=== PATIENT | male | born 1975 | race Caucasian/White ===

== ENCOUNTER 2018-08-06 14:53 | Emergency (ER) | payer OTHER ==
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
[2018-08-06 15:30] VITALS: BP 143/87
== END 2018-08-06 16:02 | disposition home or self-care (01) ==
LOC: UCCORT 14:53
DX: M76.62 Achilles tendinitis, left leg (principal); Z88.0 Allergy status to penicillin; Z88.1 Allergy status to other antibiotic agents; Z88.6 Allergy status to analgesic agent
CPT/HCPCS: 99213; G0463